=== PATIENT | female | born 1960 | race Caucasian/White ===

== ENCOUNTER → 2018-03-17 | Outpatient (CLI) | payer OTHER ==
--- NOTE | 2018-03-17 12:13 | DIAGNOSTIC IMAGING REPORT ---
(DEV/BLAD)RETROPERITON COMP HISTORY: Pain M54.9 Back pain, chronicR/O [id number] COMPARISON: None. FINDINGS: Right kidney: Maximum dimension 10.8 cm. No evidence for hydronephrosis. Normal corticomedullary differentiation and cortical thickness. Left kidney: Maximum dimension 10.8 cm. No evidence for hydronephrosis. Normal corticomedullary differentiation and cortical thickness. Bladder: No bladder wall thickening. The bilateral ureteral jets were identified. IMPRESSION: Normal renal ultrasound. The above report was generated using voice recognition software. It may contain grammatical, syntax or spelling errors. Electronically signed by: Edd Martinez M.D. 03/17/2018 12:11 PM Dictated Date/Time: 03/17/2018 12:10 PM
== END | disposition home or self-care (01) ==
LOC: C.ULTRBC 11:23
PROVIDERS: ATTEND Urology
DX: M54.9 Dorsalgia, unspecified (principal)

== ENCOUNTER → 2018-03-24 | Outpatient (CLI) | payer OTHER ==
[2018-03-24 13:03] LABS: MEAN CELL VOLUME 90.3 fL (80-100); MEAN CORPUSCULAR HEMOGLOBIN 30.1 pg (25-34); MEAN CORPUSCULAR HGB CONC 33.3 g/dl (32-36); MEAN PLATELET VOLUME 11.3 fL (7.4-10.4); PLATELET COUNT 336 K/uL (130-400); RED CELL DISTRIBUTION WIDTH CV 14.3 % (11.5-14.5); RED CELL DISTRIBUTION WIDTH SD 46.7 fL (36.4-46.3); WHITE BLOOD COUNT 11.37 K/uL (4.8-10.8)
[2018-03-24 14:42] LABS: ALBUMIN 4.2 gm/dl (3.4-5.0); ALKALINE PHOSPHATASE 44 U/L (45-117); ALT/SGPT 22 U/L (12-78); AST/SGOT 13 U/L (15-37); BLOOD UREA NITROGEN 12 mg/dl (7-18); CALCIUM 9.6 mg/dl (8.5-10.1); CARBON DIOXIDE 26 mmol/L (21-32); CHOLESTEROL 200 mg/dl (0-200); CREATININE 0.67 mg/dl (0.60-1.20); GLUCOSE 102 mg/dl (70-99); LDL CHOLESTEROL CALCULATED 96 mg/dl; POTASSIUM 3.8 mmol/L (3.5-5.1); SODIUM 140 mmol/L (136-145); TOTAL PROTEIN 7.8 gm/dl (6.4-8.2)
== END | disposition home or self-care (01) ==
LOC: C.LABBC 09:09
PROVIDERS: ATTEND Physician Assistant Medical
DX: Z00.00 Encounter for general adult medical examination without abnormal findings (principal); I10 Essential (primary) hypertension